=== PATIENT | female | born 1980 | race Caucasian/White ===

== ENCOUNTER 2018-03-16 12:31 | Emergency (ER) | payer BC, OTHER ==
[2018-03-16 14:18] VITALS: BP 146/90
--- NOTE | 2018-03-16 14:45 | UC ---
Justine Prieto Elizabeth, scribed for Lior Santillan MD on 03/16/18 at 1442 . Skin Complaint HPI - HPI Summary HPI Summary: This patient is a 37 year old F presenting to [facility] with a chief complaint of painful rash at the top of the right breast since 4 days ago. The patient reports that the pain radiates to right arm and the right posterior back. The patient rates the pain 6/10 in severity. Per triage note, the patient was recently diagnosed with vaginitis and has been taking flucanozole. - History of Current Complaint Chief Complaint: UCSkin Time Seen by Provider: 03/16/18 14:13 Stated Complaint: RASH Hx Obtained From: Patient Hx Last Menstrual Period: 03/15/18 Onset/Duration: Sudden Onset, Lasting Days - 4 days, Still Present Timing: Constant Onset Severity: Mild Current Severity: Mild Pain Intensity: 6 Pain Scale Used: 0-10 Numeric Location: Diffuse Aggravating Factor(s): Nothing Alleviating Factor(s): Nothing Associated Signs & Symptoms: Positive: Rash - on right upper breast - Allergy/Home Medications Allergies/Adverse Reactions: Allergies Allergy/AdvReac Type Severity Reaction Status Date / Time codeine Allergy Difficulty Verified 03/16/18 14:19 Breathing rabies vaccine,purified Allergy Difficulty Verified 03/16/18 14:19 chick-everton Breathing Home Medications: Home Medications Desipramine TAB* [Norpramin TAB*] 100 mg PO DAILY 03/16/18 [History Confirmed ] metFORMIN* [Glucophage 1000 MG TAB *] 1,000 mg PO BID 03/16/18 [History Confirmed 03/16/18] Review of Systems Skin: Rash - on right upper breast ENT: Negative Gastrointestinal: Negative Musculoskeletal: Other: - pain in right posterior back and right arm Neurological: Negative All Other Systems Reviewed And Are Negative: Yes PMH/Surg Hx/FS Hx/Imm Hx - Surgical History Surgical History: None - Family History Known Family History: Negative: Seizure Disorder - Social History Alcohol Use: None Substance Use Type: None Smoking Status (MU): Never Smoked Tobacco Physical Exam - Summary Physical Exam Summary: General: well-appearing, no pain distress Skin: warm, color reflects adequate perfusion, dry. Two 3mm vesicular patches on the right upper breast. Head: normal Eyes: EOMI, JEFF ENT: normal Neck: supple, nontender Respiratory: CTA, breath sounds present Cardiovascular: RRR Abdomen: soft, nontender Bowel: present Musculoskeletal: normal, strength/ROM intact Neurological: sensory/motor intact, A&O x3 Psychological: affect/mood appropriate Triage Information Reviewed: Yes Vital Signs: Initial Vital Signs Temp 98.2 F 03/16/18 14:11 Pulse 96 03/16/18 14:11 Resp 16 03/16/18 14:11 BP 146/90 03/16/18 14:11 Pulse Ox 98 03/16/18 14:11 Vital Signs Reviewed: Yes Course/Dx - Diagnoses Provider Diagnoses: SHINGLES Discharge - Sign-Out/Discharge Documenting (check all that apply): Discharge/Admit/Transfer - Discharge Plan Condition: Stable Disposition: HOME Prescriptions: Valacyclovir HCl [Valacyclovir] 1 gm PO TID #21 tab Patient Education Materials: Rodney (ED) Referrals: Khoa Perez MD [Primary Care Provider] - Additional Instructions: FOLLOW UP WITH YOUR DOCTOR. GET RECHECKED FOR ANY WORSENING OF YOUR CONDITION OR QUESTIONS OR CONCERNS. - Billing Disposition and Condition Condition: STABLE Disposition: HOME The documentation as recorded by the Justine dietz Elizabeth accurately reflects the service I personally performed and the decisions made by me, Lior Santillan MD.
== END 2018-03-16 15:00 | disposition home or self-care (01) ==
LOC: UCEAST 12:31
DX: B02.9 Zoster without complications (principal); Z88.5 Allergy status to narcotic agent; Z88.7 Allergy status to serum and vaccine
CPT/HCPCS: 99212; G0463